=== PATIENT | female | born 2000 | race Caucasian/White ===

== ENCOUNTER 2024-10-28 11:26 | Emergency (ER) | payer SELFPAY ==
[2024-10-28 11:38] VITALS: BP 107/72; PULSE 86; RESP 18; TEMP 36.8; O2SAT 96
--- NOTE | 2024-10-28 11:46 | W.ED.DENTAL ---
HPI - Dental/Oral General: Chief complaint: Dental/Oral Stated complaint: tooth pain Time Seen by Provider: 10/28/24 11:45 History of Present Illness: 24-year-old female who presents emergency room with dental pain. She is having pain in her right lower second to last molar. She has extensive dental caries and dental fractures. She says she feels like she is developing an abscess. She says whenever this happens she needs to get antibiotics. I discussed that she does need to follow-up with a dentist to soon as possible. Related Data Home Medications ?Medication ?Instructions ?Recorded ?Confirmed norethindrone (contraceptive) 0.35 0.35 mg PO DAILY 10/28/24 10/28/24 mg tablet Previous Rx's ?Medication ?Instructions ?Recorded amoxicillin 875 mg-potassium 1 tab PO BID 10 days #20 tabs 10/28/24 clavulanate 125 mg tablet diclofenac sodium 50 mg 50 mg PO BID PRN pain #14 tabs 10/28/24 tablet,delayed release Allergies Allergy/AdvReac Type Severity Reaction Status Date / Time No Known Allergies Allergy Verified 10/28/24 11:40 Review of Systems Narrative: Constitutional symptoms: Negative except as documented in HPI. Skin symptoms: Negative except as documented in HPI. Eye symptoms: Negative except as documented in HPI. ENMT symptoms: Negative except as documented in HPI. Respiratory symptoms: Negative except as documented in HPI. Cardiovascular symptoms: Negative except as documented in HPI. Gastrointestinal symptoms: Negative except as documented in HPI. Genitourinary symptoms: Negative except as documented in HPI. Musculoskeletal symptoms: Negative except as documented in HPI. Neurologic symptoms: Negative except as documented in HPI. Psychiatric symptoms: Negative except as documented in HPI. Endocrine symptoms: Negative except as documented in HPI. Physical Exam Narrative: EXAM NARRATIVE: General: Alert, no acute distress. Skin: warm and dry Head: Normocephalic Neck: Trachea midline Eye: Extraocular movements are intact. Ears, nose, mouth and throat: Oral mucosa moist. Dental caries present. Right posterior second to last molar on the bottom has a dental fracture with caries and she has pain there. No obvious abscess at this time. Respiratory: Respirations are non-labored Musculoskeletal: Normal ROM Neurological: Alert and oriented, No focal neurological deficit observed. Psychiatric: Cooperative, appropriate mood & affect. Course Vital Signs: Vital signs: Vital Signs Temperature 98.2 F 10/28/24 11:38 Pulse Rate 86 10/28/24 11:38 Respiratory Rate 18 10/28/24 11:38 Blood Pressure 107/72 10/28/24 11:38 Pulse Oximetry 96 10/28/24 11:38 Oxygen Delivery Me thod Room Air 10/28/24 11:38 MDM - Dental/Oral Medical Decision Making Assessment and plan: Dental caries Dental infection ? Home on Augmentin and diclofenac - Discharged home - Discussed plan with patient. Answered any questions. - Evaluation and treatment of this problem were appropriate in the emergency setting. No radiology studies performed this visit Discharge Plan Discharge Patient Disposition: Home Clinical Impression: Toothache, Dental caries, Dental abscess Condition: Stable Prescriptions: New diclofenac sodium 50 mg tablet,delayed release (DR/EC) 50 mg PO BID PRN (Reason: pain) Qty: 14 0RF amoxicillin-pot clavulanate 875-125 mg tablet 1 tab PO BID 10 Days Qty: 20 0RF Discharge Orders: Discharge ED (Routine); Ordered 10/28/24 Ordered By: Tatiana Tovar Discharge Diet: Advance as tolerated Discharge Activity: Increase activity as tolerated Patient Instructions: Dental Abscess (ED), Opioid Safety, Pain Management Activity Restrictions/Additional Instructions: Please follow-up with a dentist as soon as possible. Thank you for choosing [facility] for your healthcare needs today. Please realize this is an emergency room and that we are providing you with a medical screening exam and this may not be complete and all inclusive of all the testing and or work up that you may need to determine your ailment or severity of your illness. You have been screened and evaluated and felt safe for discharge. Health conditions do change or evolve sometimes and as such it is important that you follow up with your Primary Doctor to be re checked, 3-5 days is a general good time frame for follow up. 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
== END 2024-10-28 11:58 | disposition home or self-care (01) ==
PROVIDERS: Emergency Provider Emergency Medicine
DX: K08.89 Other specified disorders of teeth and supporting structures (principal); K02.9 Dental caries, unspecified; K04.7 Periapical abscess without sinus
CPT/HCPCS: 99283

== ENCOUNTER 2024-12-15 01:32 | Emergency (ER) | payer MEDICAID, SELFPAY ==
[2024-12-15 01:34] VITALS: BP 116/62; PULSE 65; RESP 15; TEMP 36.2; O2SAT 99; BMI 27.4
--- NOTE | 2024-12-15 01:42 | W.ED.DENTAL ---
HPI - Dental/Oral General: Chief complaint: Dental/Oral Stated complaint: Tooth Infection Time Seen by Provider: 12/15/24 01:33 Source: patient Mode of arrival: ambulatory Limitations: no limitations History of Present Illness: 24-year-old female states that she been having right lower dental pain for over a week. She had a history of poor dentition in the past. Patient denies any trismus denies any vomiting or diarrhea. She is afebrile here. 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 ALGY-Rash Uncoded 12/15/24 01:39 Review of Systems Const: Denies: fever(s), chills, body aches or change in appetite ENMT: Reports: dental pain; Denies: throat pain Card: Denies: chest pain Resp: Denies: dyspnea GI: Denies: abdominal pain, nausea, vomiting or diarrhea Musc: Denies: neck pain or back pain Skin/Breast: Denies: rash Neuro: Denies: headache(s) Physical Exam Const: COMMON NORMALS: no acute distress, patient oriented x3 and healthy appearing HENMT: COMMON NORMALS: normocephalic and atraumatic HEAD & SCALP: normocephalic and atraumatic OTHER: tenderness over right lower molar, poor dentention no abscess or trismuss Neck/C-Spine: COMMON NORMALS: full ROM and supple Chest: COMMONS NORMALS: normal inspection of the chest Resp: COMMON NORMALS: normal respiratory effort Cardio: COMMON NORMALS: regular rate RATE: regular rate Extremity: COMMON NORMALS: normal to inspection and full ROM Neuro: COMMON NORMALS: patient oriented x3, moves all extremities and no focal motor deficits Psych: COMMON NORMALS: mental status grossly normal, Normal thought process present and cooperative THOUGHT PROCESS: Normal thought process present Skin: COMMON NORMALS: no rashes or lesions noted and no wounds GENERAL SKIN EXAM: no rashes or lesions noted Course Vital Signs: Vital signs: Vital Signs Temperature 97.1 F L 12/15/24 01:34 Pulse Rate 65 12/15/24 01:34 Respiratory Rate 15 12/15/24 01:34 Blood Pressure 116/62 12/15/24 01:34 Pulse Oximetry 99 12/15/24 01:34 Oxygen Delivery Me thod Room Air 12/15/24 01:34 MDM - Dental/Oral Medical Decision Making Patient presents for dental pain no trismus no abscess we will start antibiotics she stable for discharge she has to follow-up with dentist return if worsening. Medical Records I reviewed the patient's medical records. No radiology studies performed this visit Discharge Plan Discharge Patient Disposition: Home Clinical Impression: Pain, dental Condition: Stable Prescriptions: New naproxen [Naprosyn] 500 mg tablet 500 mg PO BID PRN (Reason: pain) Qty: 20 0RF amoxicillin 875 mg tablet 875 mg PO Q12H Qty: 14 0RF No Action diclofenac sodium 50 mg tablet,delayed release (DR/EC) 50 mg PO BID PRN (Reason: pain) Qty: 14 0RF norethindrone (contraceptive) 0.35 mg tablet 0.35 mg PO DAILY Discharge Orders: Discharge ED (Routine); Ordered 12/15/24 Ordered By: Luanne Robertson Discharge Diet: Advance as tolerated Discharge Activity: Resume usual activity Patient Instructions: Toothache (ED) Print Language: [place] Citizen Coding Level of Care Code ED 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
[2024-12-15] MEDS: amoxicillin 500 mg Capsule PO (01:49)
[2024-12-15] MEDS: HYDROcodone-acetaminophen 5-325 mg Tablet 1 TAB PO (01:50)
[2024-12-15 01:55] VITALS: BP 92/56; PULSE 60; O2SAT 99
== END 2024-12-15 01:50 | disposition home or self-care (01) ==
PROVIDERS: Emergency Provider Emergency Medicine
DX: K08.89 Other specified disorders of teeth and supporting structures (principal)
CPT/HCPCS: 99283; J9999

== ENCOUNTER 2024-12-15 23:15 | Emergency (ER) | payer MEDICAID, SELFPAY ==
[2024-12-15 23:17] VITALS: BMI 22.8
[2024-12-15 23:27] VITALS: BP 126/83; PULSE 84; RESP 16; TEMP 36.7; O2SAT 96
--- NOTE | 2024-12-15 23:46 | W.ED.DENTAL ---
HPI - Dental/Oral General: Chief complaint: Dental/Oral Stated complaint: Tooth Ache Time Seen by Provider: 12/15/24 23:35 Source: patient Mode of arrival: ambulatory Limitations: no limitations History of Present Illness: 24yo female presents with family for evaluation of dental pain. Patient reports that she has a tooth on the right lower that has been giving her problems for the past several days. States she has a history of dental issues, but has not seen a dentist in many years. Patient reports she does plan to obtain a dentist in this area. She was seen in this ER early this morning for the same complaint and prescribed amoxicillin with naproxen. Patient reports that amoxicillin never works for her and typically makes it worse. She also states that the naproxen is not working. States she has tried crko-crd-[id number] medications in addition to the naproxen, but they are not working. Patient has difficulty verbalizing what yqrw-[id number]-[id number] medication she has tried. Patient states the antibiotic that she received last month works for her, but does not know what that antibiotic is. Patient states that she can feel the pain going up into her head and down into her neck. She states that she has had fever in the tooth, but not a systemic fever. Patient denies difficulty swallowing, painful tongue movements, any other concern at this time. 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 She is sitting upright on the stretcher no acute distress. She is able to give history with no difficulty. She is interactive with exam appropriately. Family is at bedside HENMT: COMMON NORMALS: normocephalic HEAD & SCALP: normocephalic FACE & SINUS: face symmetric; no edema MOUTH: tongue normal TEETH & GINGIVA: Yes poor dentition (Throughout. Several decaying teeth noted. No abscess visualized) and Yes teeth discoloration THROAT: posterior oropharynx normal Chest: CHEST: Yes Symmetrical chest wall rise Resp: COMMON NORMALS: normal respiratory effort EFFORT & INSPECTION: Yes able to speak in complete sentences Extremity: COMMON NORMALS: full ROM Neuro: COMMON NORMALS: patient oriented x3 SENSORIUM/ORIENTATION: Yes alert Psych: COMMON NORMALS: cooperative Course Vital Signs: Vital signs: Vital Signs Temperature 98.1 F 12/15/24 23:27 Pulse Rate 84 12/15/24 23:27 Respiratory Rate 16 12/15/24 23:27 Blood Pressure 126/83 12/15/24 23:27 Pulse Oximetry 96 12/15/24 23:27 Oxygen Delivery Me thod Room Air 12/15/24 23:27 MDM - Dental/Oral Medical Decision Making 24yo female presents with family for evaluation of dental pain. Patient reports that she has a tooth on the right lower that has been giving her problems for the past several days. States she has a history of dental issues, but has not seen a dentist in many years. Patient reports she does plan to obtain a dentist in this area. She was seen in this ER early this morning for the same complaint and prescribed amoxicillin with naproxen. Patient reports that amoxicillin never works for her and typically makes it worse. She also states that the naproxen is not working. States she has tried ueks-kzf-[id number] medications in addition to the naproxen, but they are not working. Patient has difficulty verbalizing what yikq-dku-zrblcsj medication she has tried. Patient states the antibiotic that she received last month works for her, but does not know what that antibiotic is. Patient states that she can feel the pain going up into her head and down into her neck. She states that she has had fever in the tooth, but not a systemic fever. Patient denies difficulty swallowing, painful tongue movements, any other concern at this time. Patient is nontoxic in appearance. Vital signs are stable. There is no indication of Boris's. Patient is able to speak and move her tongue freely. There is no abscess visualized. There is chronic dental decay and poor dentition throughout. Chart review reveals patient was prescribed amoxicillin 875 mg with naproxen early this morning. When she was seen on 10/28/2024, she was prescribed Augmentin with diclofenac and reported improvement in her dental pain at that time. Patient requested further evaluation as she clarified that she believes her abscess is to the top of her mouth on the right side, but the majority of her pain is to the bottom of her mouth. No abscess visualized or palpated. Discussed with patient that we would still continue with antibiotics. Given that patient was on Augmentin last month and prescribed amoxicillin earlier this morning, we will change to clindamycin. Patient is agreeable with plan. First dose provided while in the emergency department. Patient did receive ketorolac as well as orphenadrine to help with her pain. 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 Strongly encourage patient to follow-up with a dentist as soon as possible for definitive care of her dental disease. Return precautions provided. Patient states understanding and has no further questions or concerns at this time. Differential Diagnosis Likely dental caries, toothache, dental abscess and fracture of tooth Medical Records I reviewed the patient's medical records. No radiology studies performed this visit Discharge Plan Discharge Patient Disposition: Home Clinical Impression: Tooth infection, Pain, dental, Need for assessment by dentistry for poor dentition Condition: Stable Prescriptions: New ketorolac 10 mg tablet 10 mg PO Q6H PRN (Reason: pain) 5 Days Qty: 20 0RF clindamycin HCl 300 mg capsule 300 mg PO QID 7 Days Qty: 28 0RF Discontinued naproxen [Naprosyn] 500 mg tablet 500 mg PO BID PRN (Reason: pain) Qty: 20 0RF amoxicillin 875 mg tablet 875 mg PO Q12H Qty: 14 0RF diclofenac sodium 50 mg tablet,delayed release (DR/EC) 50 mg PO BID PRN (Reason: pain) Qty: 14 0RF No Action norethindrone (contraceptive) 0.35 mg tablet 0.35 mg PO DAILY Discharge Orders: Discharge ED (Routine); Ordered 12/16/24 Ordered By: Alexey Payton Discharge Diet: Usual diet Discharge Activity: Resume usual activity Patient Instructions: Toothache (ED) Activity Restrictions/Additional Instructions: Clindamycin has been sent to the pharmacy for concern of infection of the teeth. Please stop the previously prescribed amoxicillin Ketorolac has been sent to the pharmacy to help with the throbbing pain. Please do not take naproxen, diclofenac, ibuprofen, or Advil while taking this medication. You may still use acetaminophen, if needed Rinse your mouth with warm salty water after eating and smoking Follow-up with a dentist as soon as possible Return to the emergency department if any rapid worsening symptoms, difficulty swallowing, painful tongue movements, and as needed Print Language: Bengali Coding Level of Care Code ED Senior Auditor for [facility] Helm
[2024-12-16] MEDS: orphenadrine 30 mg/mL Inj 2 mL 60 MG IM (00:16)
[2024-12-16] MEDS: ketorolac 60 mg/2 mL INJ IM (00:16)
[2024-12-16] MEDS: clindamycin 150 mg Capsule 300 MG PO (00:17)
[2024-12-16 00:53] VITALS: BP 125/88; PULSE 68; RESP 16; O2SAT 95
== END 2024-12-16 00:45 | disposition home or self-care (01) ==
PROVIDERS: Emergency Provider Nurse Practitioner
DX: K04.7 Periapical abscess without sinus (principal); K08.89 Other specified disorders of teeth and supporting structures
CPT/HCPCS: 96372; 99284; J1885; J2360; J9999